=== PATIENT | female | born 1950 | race Caucasian/White ===

== ENCOUNTER 2016-12-07 08:05 | Day surgery (SDC) | payer OTHER ==
[~2016-12-07 08:05] MED LIST: EPINEPHRINE INJ 1 MG/10 ML DISP.SYRIN ONE; FLUMAZENIL INJ 0.5 MG/5 ML VIAL IV ONE; GLUCAGON,HUMAN RECOMB 1 MG INJ ONE; NALOXONE HCL INJ/PF 0.4 MG/1 ML SDV ONE; ONDANSETRON HCL INJ/PF 4 MG/2 ML SDV ONE
[2016-12-07 08:54] LABS: HEMATOCRIT 39.1 % (36.0-47.0); HEMOGLOBIN 13.2 g/dL (12.0-15.5); HGB HCT DIFFERENCE 0.5; MEAN CORPUSCULAR HEMOGLOBIN 30.2 pg (27.0-33.4); MEAN CORPUSCULAR HGB CONC 33.8 g/dL (32.0-36.0); MEAN CORPUSCULAR VOLUME 89 fl (80-97); RED BLOOD COUNT 4.38 10^6/uL (3.72-5.28); WHITE BLOOD COUNT 6.4 10^3/uL (4.0-10.5)
[2016-12-07] MEDS: MIDAZOLAM 2 MG/2 ML INJ ONE ×5 (10:41→11:09)
[2016-12-07] MEDS: FENTANYL CITRATE INJ/PF 100 MCG/2 ML AMPUL ONE ×3 (10:43→11:07)
--- NOTE | 2016-12-07 11:33 | PDOC DISCHARGE SUMMARY ---
Discharge Summary (SDC) - Discharge Final Diagnosis: History of colon polyp. Date of Surgery: 12/07/16 Discharge Date: 12/07/16 Condition: Good Treatment or Instructions: Colonoscopy. May discharge the patient home when met discharge criteria. Follow-up with me in 2-3 weeks. Discharge Diet: As Tolerated Discharge Activity: Activity As Tolerated Report the Following to Your Physician Immediately: Increase in Pain, Unusual Bleeding
[2016-12-07 12:21] VITALS: BP 136/77
--- NOTE | 2016-12-13 09:04 | Operative Report ---
Operative Report DATE OF SURGERY: 12/07/16 PREOPERATIVE DIAGNOSIS: History of colon polyp. POSTOPERATIVE DIAGNOSIS: History of colon polyp OPERATION: Colonoscopy SURGEON: BOBBY DUMONT ANESTHESIA: Moderate Sedation TISSUE REMOVED OR ALTERED: None COMPLICATIONS: None ESTIMATED BLOOD LOSS: none INTRAOPERATIVE FINDINGS: Markedly redundant the sigmoid colon. Otherwise normal colonoscopy with no polyps no diverticuli. PROCEDURE: Informed consent was obtained. Patient was brought to the endoscopy suite. IV sedation with Versed and fentanyl was administered. She had the perianal skin tags. Digital rectal exam revealed no palpable perianal masses. Endoscope was passed via the patient's anus it was fed to the cecum. Procedure was very difficult at the beginning due to the marked redundancies of her sigmoid colon. The bowel prep was good. Visualization was difficult due to the redundancies but the adequate visualization was obtained. The right colon, transverse colon , descending colon, sigmoid colon, and the rectum were all normal with no polyps and no masses. Patient tolerated procedure well with no apparent complications and was taken to the recovery area in stable condition. Assessment: history of colon polyps in the past. Current colonoscopy unremarkable. Recommend repeat colonoscopy in 5 years in light of prior polyp and marked redundancies of her colon precluding perfect visualization.
== END 2016-12-07 12:25 | disposition home or self-care (01) ==
LOC: END 08:05
PROVIDERS: ATTEND Surgery
PROC: 0DJD8ZZ Inspection of Lower Intestinal Tract, Via Natural or Artificial Opening Endoscopic (ICD-10-PCS; principal; 2016-12-07 09:45)
DX: Z86.010 Personal history of colon polyps (principal); I10 Essential (primary) hypertension; E78.00 Pure hypercholesterolemia, unspecified; F32.9 Major depressive disorder, single episode, unspecified; E03.9 Hypothyroidism, unspecified; Z79.899 Other long term (current) drug therapy; Q43.8 Other specified congenital malformations of intestine
CPT/HCPCS: 45378; 36415; 85027; J2250; J3010; J0171; J1610; J2310; J2405; J3490

== ENCOUNTER → 2017-12-28 | Outpatient (CLI) | payer MEDICARE, OTHER ==
--- NOTE | 2017-12-28 12:27 | RADIOLOGY REPORT (SQ) ---
EXAM DESCRIPTION: MRI LT UPPER JOINT WITHOUT COMPLETED DATE/TIME: 12/28/2017 11:55 am REASON FOR STUDY: STRAIN OF MUCLE, FASCIA AND TENDON OF LONG HEAD OF BICEPS, LT ARM (S46.442A S46.11 2A STRAIN OF MUSC/FASC/TEND LONG HEAD OF BICEPS, LEFT COMPARISON: None. TECHNIQUE: Left shoulder images acquired and stored on PACS. Multiplanar imaging to include fat sens itive sequences such as T1, water sensitive sequences such as FST2/STIR, cartilage sensitive sequence s such as FSPD/gradient-echo sequences. LIMITATIONS: None. FINDINGS: BONE MARROW AND CORTEX: No worrisome bone lesions or marrow replacement. No occult fractur es. JOINT OR BURSAL EFFUSION: No significant joint or bursal fluid. No suggestion of loose bodies. GLENO-HUMERAL ARTICULATION: Normal articulation. No subluxation. No cystic change. No osteophytes or cartilage loss. ACROMION AND AC JOINT: Type 2 acromion. Mild AC joint arthropathy. ROTATOR CUFF AND INTERVAL: Mild tendinopathy. Focal increased signal along the articular surface of the supraspinatus tendon, partial thickness. No rotator interval tear. No rotator interval thickening to suggest adhesive capsulitis. LABRUM AND BICEPS LABRAL COMPLEX: Intact. No labral tear. Intra-articular long-head biceps tendon n ormal. Distal biceps in normal location in bicipital groove. REMAINDER OF LABRUM AND IGHL : No gross tear or paralabral cyst formation. Labral evaluation is less than optimal without joint distention. No thickening of IGHL to suggest adhesive capsulitis. PERIARTICULAR AND ADJACENT SOFT TISSUES: No masses or abnormal nodes. OTHER: No other significant finding. IMPRESSION: Mild tendinopathy. Small partial thickness articular surface tear of the distal suprasp inatus. TECHNICAL DOCUMENTATION: JOB ID: [id number] [employer]- All Rights Reserved Reading location - IP/workstation name: [email or web address]
== END ==
LOC: RAD 10:27
PROVIDERS: ATTEND Family Medicine
DX: S46.112A Strain of muscle, fascia and tendon of long head of biceps, left arm, initial encounter (principal); M75.101 Unspecified rotator cuff tear or rupture of right shoulder, not specified as traumatic; X58.XXXA Exposure to other specified factors, initial encounter

== ENCOUNTER 2018-05-02 08:01 | Day surgery (SDC) | payer MEDICARE, OTHER ==
[2018-04-18 13:46] LABS: HEMATOCRIT 37.7 % (36.0-47.0); HEMOGLOBIN 12.6 g/dL (12.0-15.5); MEAN CORPUSCULAR HEMOGLOBIN 29.8 pg (27.0-33.4); MEAN CORPUSCULAR HGB CONC 33.4 g/dL (32.0-36.0); MEAN CORPUSCULAR VOLUME 89 fl (80-97); PLATELET COUNT 174 10^3/uL (150-450); RED BLOOD COUNT 4.23 10^6/uL (3.72-5.28); RED CELL DISTRIBUTION WIDTH 13.6 % (11.5-14.0); WHITE BLOOD COUNT 8.7 10^3/uL (4.0-10.5)
[2018-04-18 13:59] LABS: PROTHROMBIN TIME 12.6 SEC (11.4-15.4)
[2018-04-18 14:00] LABS: PARTIAL THROMBOPLASTIN TIME 29.6 SEC (23.5-35.8)
--- NOTE | 2018-04-18 19:55 | EKG REPORT ---
SEVERITY:- NORMAL ECG - SINUS RHYTHM : Confirmed by: Saul Garg MD 18-Apr-2018 19:55:14
[~2018-05-02 08:01] MED LIST changes: +CEFAZOLIN 1 GM/D5W RTU 1 GM/50 ML RTUPB IV ONE; +CEFAZOLIN 1 GM/D5W RTU 1 GM/50 ML RTUPB IV PRN; -EPINEPHRINE INJ 1 MG/10 ML DISP.SYRIN ONE; -FLUMAZENIL INJ 0.5 MG/5 ML VIAL IV ONE; -GLUCAGON,HUMAN RECOMB 1 MG INJ ONE; +LACTATED RINGERS 1000 ML IV PRN; +LIDOCAINE 0.5% INJ-PF (5 MG/ML) 50 ML SDV SUBCUT PRN; -NALOXONE HCL INJ/PF 0.4 MG/1 ML SDV ONE; -ONDANSETRON HCL INJ/PF 4 MG/2 ML SDV ONE; +POVIDONE-IODINE 5% OPH PREP SOLN 30 ML ONE
[2018-05-02] MEDS ORDERED: FENTANYL CITRATE INJ/PF 100 MCG/2 ML AMPUL ONE (09:33)
[2018-05-02] MEDS ORDERED: MIDAZOLAM 2 MG/2 ML INJ ONE (09:33)
[2018-05-02] MEDS ORDERED: PROPOFOL INJ 200 MG/20 ML VIAL IV ONE (09:34)
[2018-05-02] MEDS: SODIUM BICARBONATE 8.4% INJ 50 MEQ/50 ML DISP.SYRIN ONE ×2 (10:10→11:04)
[2018-05-02] MEDS: LIDOCAINE 1%/EPINEPHRINE INJ 20 ML VIAL ONE ×2 (10:10→11:04)
[2018-05-02] MEDS ORDERED: PROMETHAZINE HCL INJ 25 MG/1 ML VIAL IV PRN ×2 (10:55)
[2018-05-02] MEDS ORDERED: FENTANYL CITRATE INJ/PF 100 MCG/2 ML AMPUL IV PRN ×3 (10:55)
[2018-05-02] MEDS ORDERED: DIPHENHYDRAMINE HCL 50 MG/ML VIAL IV PRN (10:55)
[2018-05-02] MEDS ORDERED: MEPERIDINE HCL/PF INJ 25 MG/1 ML DISP.SYRIN IV PRN (10:55)
[2018-05-02] MEDS ORDERED: MORPHINE SULFATE 10 MG/ML INJ IV PRN (10:55)
--- NOTE | 2018-05-02 11:29 | Operative Report ---
Operative Report DATE OF SURGERY: 05/02/18 PREOPERATIVE DIAGNOSIS: Lipoma mass of the right lateral ankle POSTOPERATIVE DIAGNOSIS: Same OPERATION: Excision of lipoma of right lateral ankle with closure and splint application SURGEON: SARY VICKERS ANESTHESIA: LMAC TISSUE REMOVED OR ALTERED: Lipoma COMPLICATIONS: None ESTIMATED BLOOD LOSS: Minimal PROCEDURE: The patient was brought into the operating room after being marked. The patient was placed in a sloppy lateral position. The patient was then prepped with a Betadine scrub and Betadine solution. A timeout was performed. The area for resection was outlined. Injection of 1% lidocaine with epinephrine and bicarbonate was performed for its anesthetic and hemostatic effects. An incision was then made through the skin into the subcutaneous tissue. Dissection was performed [id number] to encounter the mass. Once the mass was encountered a dissection was performed 360 in order to remove the mass Retraction was used to facilitate exposure. Dissection was performed through the fat layer and down to the fascia [and down into the deeper soft tissue].. [id number] the mass was dissected free of the surrounding tissue. Throughout the case hemostasis was achieved with the bipolar. Once the mass was completely dissected it was then removed. The area was washed with Betadine and sterile water solution. Hemostasis was confirmed. The wound was cleaned with Betadine prior to the final closure. Attempts were to close the wound with a sub-dermal suture however the skin was so thin there was puckering on trying to apply the deep dermal sutures. The skin had to be closed with skin sutures only. 4-0 Prolene was used for horizontal mattress and simple interrupted sutures. This gave her the best possibilities of a good closure. Tincture of benzoin and Steri-Strips with a light pressure dressing was applied. A Ortho-Glass splint was applied to support the closure because the skin was so thin and frail. Patient was then reversed from anesthesia and taken to the [facility] for recovery. The approximate size of the mass was 5.2 cm x 3.5 cm measured prior to the resection. This dictation was performed with dragon naturally speaking. If there are any inconsistencies or errors please contact the physician. Subjective: No complaints Objective: Vital signs stable afebrile No bleeding Dressing intact Assessment and plan: Doing well. Elevate the operative site. Resume medications. Take antibiotics for 1 day Follow-up Full instructions were given to the patient and family and they understand Portions of this note may be dictated using [employer] voice recognition software. Occasional variations and spelling and vocabulary could be possible and are unintentional. Additionally, there is a chance that some errors may not be caught or corrected. Please notify the offer of any discrepancies noted or if any statements are unclear.
--- NOTE | 2018-05-02 11:32 | Discharge Summary ---
Discharge Summary (SDC) - Discharge Final Diagnosis: Lipoma of the right lateral ankle lipoma of the right lateral ankle Date of Surgery: 05/02/18 Condition: Good Treatment or Instructions: Use the splint for support and to protect the closure. Leave the steri-strip tapes on for 5 days, then removal. Then cleaning wound with peroxide and apply Neosporin/bacitracin 3 times per day. Antibiotics for 1 day, then discontinue. Elevate operative area to decrease swelling. Do not strain, or lift heavy objects. Call for excessive bleeding, increased temperature of 101, uncontrolled pain, or excessive nausea or vomiting. You may reach Dr. Narayan through his office at [phone]. In the event of an emergency after hours, then contact Dr. Narayan through [facility]. Return to the office for a postop check on . The time will be scheduled by the nursing staff of [facility] prior to discharge. Please give the patient a copy of their labs and EKG so they can bring this to their PMD. Thank you Portions of this note may be dictated using [employer] voice recognition software. Occasional variations and spelling and vocabulary could be possible and are unintentional. Additionally, there is a chance that some errors may not be caught or corrected. Please notify the offer of any discrepancies noted or if any statements are unclear. Referrals: CARLITOS WILLIAMSON NP [Primary Care Provider] - Discharge Diet: As Tolerated Report the Following to Your Physician Immediately: Unusual Bleeding - Keep foot elevated. Monitor capillary refill in the toes. If the splint gets too tight loosen it. If the splint gets too loose tighten it. Leave the splint on for support. In several days the splint can be taken down and the Steri-Strips can be removed. The wound could be cleaned with peroxide and apply antibiotic ointment. Reapply the splint in order to protect the incision. The splint can be stopped once there appears to be good healing of the incision line.
[2018-05-02 13:48] VITALS: BP 141/90
== END 2018-05-02 13:05 | disposition home or self-care (01) ==
LOC: OROUT 08:01
PROVIDERS: ATTEND Plastic Surgery
DX: D17.23 Benign lipomatous neoplasm of skin and subcutaneous tissue of right leg (principal); I10 Essential (primary) hypertension; E07.9 Disorder of thyroid, unspecified; Z79.899 Other long term (current) drug therapy; Z79.1 Long term (current) use of non-steroidal anti-inflammatories (NSAID); Z01.818 Encounter for other preprocedural examination
CPT/HCPCS: 93005; 36415; 85027; 85610; 85730; 88304 ×2; 93010; 27632; J2250; J0690; J3010; J3490 ×2; J2704; 1470